=== PATIENT | male | born 1965 | race Caucasian/White ===

== ENCOUNTER 2018-07-02 16:45 | Inpatient (IN) | payer MEDICAID ==
--- NOTE | 2018-07-02 17:11 | EDPHY ---
HPI/HX/ROS/PE/MDM Narrative: CHIEF COMPLAINT: Chest tightness HISTORY OF PRESENT ILLNESS: The patient is a 52 y/o male with a history of diabetes, a STEMI, two cardiac stents, and borderline hypertension complaining of intermittent chest tightness associated with sweating and difficulty taking a deep breath. At the time of his STEMI his face was itchy and he felt like someone was pushing on his head. Due to his past STEMI he was advised to take nitroglycerin if he developed chest pain. For the past 6 months he was not taken his medications as he lost his insurance. He recently received Medicaid and went to see his PCP, Dr. Albert, yesterday. During this visit he was giving a flu shot and subsequently developed the mid-sternal chest tightness and a low grade fever. He also had labs preformed which revealed a blood glucose level of 540. Due to this hyperglycemia he was advised to present to the emergency department, which he did not do. The patient returned home and noticed that he became short of breath while walking up stairs. The pain kept him awake most of the night last night. Today he still had the chest pain and saw an travel clerk. During this visit his BGL was around 400. After seeing the travel clerk he returned home and tried eating some food even though he was nauseous. As his symptoms did not improve he decided to present to the emergency department. Currently his pain is a 6/10. He denies history of a PE or DVT. No fever, chills, palpitations, vomiting, diarrhea, urinary complaints, headache , lightheadedness. REVIEW OF SYSTEMS: Aside from elements discussed in the HPI, a comprehensive 10 system review of systems was reviewed and is negative. PAST MEDICAL HISTORY: Diabetes, STEMI, cardiac stents x 2 (drug alluding done at [place]), borderline hypertension, TBI, his father of a cardiac problems at 44 SOCIAL HISTORY: VITAL SIGNS: Reviewed by me GENERAL: Well-developed, well-nourished, resting comfortably in no respiratory distress. HEENT: Atraumatic. Eyes: No icterus, no injection. Mouth: moist mucous membranes. No erythema or lesions. Neck: supple with no adenopathy. LUNGS: Clear to auscultation bilaterally, no wheezes, rhonchi or rales. CARDIAC: Regular rate and rhythm, no rubs, murmurs or gallops. ABDOMEN: Soft, nontender, nondistended, bowel sounds normal. BACK: No CVA tenderness. EXTREMITIES: No trauma. No edema. Range of motion is normal throughout. NEURO: Alert and oriented, grossly nonfocal. SKIN: Warm and dry, no rash. PSYCHIATRIC: Normal mentation, no agitation. Portions of this note were transcribed by a medical aide. I personally performed a history, physical exam, medical decision making, and confirmed accuracy of information the transcribed note. ED Course: The patient is a 52 y/o male with a history of diabetes, a STEMI, two cardiac stents, and borderline hypertension presenting with intermittent anterior chest tightness associated with sweating and difficulty taking a deep breath. He has been noncompliant with medications for the past 6 months as he did not have insurance. His physical exam is normal. Labs, chest x-ray, and EKG ordered; 324mg PO Aspirin, Nitroglycerin, 10 units IV Humulin, and 500mL IV NS administered. 1600: Patient's BGL is 552 1655: 12-LEAD EKG: Please see the full report in [facility]. My interpretation: Sinus rhythm with a rate of 95, old anteroseptal infarct 174: I consulted with the hospitalist service, Dr. South accepts admission of this patient. 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 1814: Reassessed patient and discussed plan for admission, which he is comfortable with. Patient will be given his third nitroglycerin. - Data Points Imaging Results: Imaging Impressions Chest X-Ray 07/02/18 17:29 Impression: 1. Moderate to large hiatal hernia. 2. 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 Imaging: I viewed and interpreted images myself Laboratory Results: Laboratory Results 07/02/18 16:55 07/02/18 16:55 07/02/18 07/02/18 07/02/18 17:00 16:55 16:55 WBC RBC Hgb Hct MCV MCH MCHC RDW Plt Count MPV Neut % (Auto) Lymph % (Auto) Sherman % (Auto) Eos % (Auto) Baso % (Auto) Nucleat RBC Rel Count Absolute Neuts (auto) Absolute Lymphs (auto) Absolute Monos (auto) Absolute Eos (auto) Absolute Basos (auto) Absolute Nucleated RBC Immature Gran % Immature Gran # Sodium 133 mEq/L L mEq/L (135-145) Potassium 4.4 mEq/L mEq/L (3.3-5.0) Chloride 96 mEq/L L mEq/L (97-110) Carbon Dioxide 26 mEq/l mEq/l (22-31) Anion Gap 11 mEq/L mEq/L (8-16) BUN 16 mg/dL mg/dL (7-23) Creatinine 0.8 mg/dL mg/dL (0.7-1.3) Estimated GFR > 60 Glucose 552 mg/dL H* mg/dL (70-100) Calcium 9.3 mg/dL mg/dL (8.5-10.4) POC Troponin I 0.00 ng/mL ng/mL (0.00-0.08) Troponin I < 0.012 ng/mL ng/mL (0.000-0.034) 07/02/18 16:55 WBC 5.15 10^3/uL 10^3/uL (3.80-9.50) RBC 5.09 10^6/uL 10^6/uL (4.40-6.38) Hgb 15.7 g/dL g/dL (13.7-17.5) Hct 44.0 % % (40.0-51.0) MCV 86.4 fL fL (81.5-99.8) MCH 30.8 pg pg (27.9-34.1) MCHC 35.7 g/dL g/dL (32.4-36.7) RDW 11.8 % % (11.5-15.2) Plt Count 189 10^3/uL 10^3/uL (150-400) MPV 12.2 fL H fL (8.7-11.7) Neut % (Auto) 70.1 % % (39.3-74.2) Lymph % (Auto) 20.2 % % (15.0-45.0) Sherman % (Auto) 8.5 % % (4.5-13.0) Eos % (Auto) 0.6 % % (0.6-7.6) Baso % (Auto) 0.4 % % (0.3-1.7) Nucleat RBC Rel Count 0.0 % % (0.0-0.2) Absolute Neuts (auto) 3.61 10^3/uL 10^3/uL (1.70-6.50) Absolute Lymphs (auto) 1.04 10^3/uL 10^3/uL (1.00-3.00) Absolute Monos (auto) 0.44 10^3/uL 10^3/uL (0.30-0.80) Absolute Eos (auto) 0.03 10^3/uL 10^3/uL (0.03-0.40) Absolute Basos (auto) 0.02 10^3/uL 10^3/uL (0.02-0.10) Absolute Nucleated RBC 0.00 10^3/uL 10^3/uL (0-0.01) Immature Gran % 0.2 % % (0.0-1.1) Immature Gran # 0.01 10^3/uL 10^3/uL (0.00-0.10) Sodium Potassium Chloride Carbon Dioxide Anion Gap BUN Creatinine Estimated GFR Glucose Calcium POC Troponin I Troponin I Medications Given: Nitroglycerin (Nitrostat) 0.4 mg SL Q5M PRN PRN Reason: Chest Pain Last Admin: 07/02/18 17:31 Dose: 0.4 mg Discontinued Medications Aspirin (Aspirin) 324 mg PO EDNOW ONE Stop: 07/02/18 17:13 Last Admin: 07/02/18 17:17 Dose: 324 mg Sodium Chloride (Ns) 500 mls @ 1,000 mls/hr IV EDNOW ONE PRN Reason: Protocol Stop: 07/02/18 17:57 Last Admin: 07/02/18 17:40 Dose: 500 mls Insulin Human Regular (Humulin R) 10 unit IVP EDNOW ONE Stop: 07/02/18 17:29 Last Admin: 07/02/18 17:43 Dose: 10 units Point of Care Test Results: Chemistry 07/02/18 17:00 POC Troponin I 0.00 ng/mL ng/mL (0.00-0.08) General Time Seen by Provider: 07/02/18 16:58 Initial Vital Signs: Initial Vital Signs Temperature (C) 37.0 C 07/02/18 16:56 Heart Rate 93 07/02/18 16:56 Respiratory Rate 18 07/02/18 16:56 Blood Pressure 149/100 H 07/02/18 16:56 O2 Sat (%) 93 07/02/18 16:56 O2 Delivery Mode Room Air Allergies/Adverse Reactions: No Known Allergies Allergy (Verified 07/02/18 16:54) Home Medications: Medication Instructions Recorded Aspirin 81mg (*) 07/02/18 Departure - Departure Disposition: [facility] Inpatient Acute Clinical Impression: H/O medication noncompliance, Hiatal hernia Chest pain Qualifiers: Chest pain type: other chest pain Qualified Code(s): R07.89 - Other chest pain ; R07.8 - Other chest pain Condition: Fair Referrals: Juana Albert MD [Primary Care Provider] - As per Instructions Report Scribed for: Thais Quarles Report Scribed by: Pamela Sanchez Date of Report: 07/02/18 Time of Report: 18:06
[2018-07-02] MEDS ORDERED: ASPIRIN 81 MG CHEWABLE TAB PO ONE (17:12)
[2018-07-02] MEDS: NITROGLYCERIN 0.4 MG BTL SL PRN ×2 (17:18→17:31)
[2018-07-02 17:19] LABS: PLATELET COUNT 189 10^3/uL (150-400)
[2018-07-02] MEDS ORDERED: NS 500 ML IV ONE (17:28)
[2018-07-02] MEDS ORDERED: INSULIN REGULAR HUMAN 100 UNIT/ML UNIT IVP ONE (17:28)
[2018-07-02] MEDS ORDERED: D50W 25 GM/50 ML VIAL IVP PRN (20:02)
[2018-07-02] MEDS ORDERED: ACETAMINOPHEN 325 MG TAB PO PRN (20:07)
[2018-07-02] MEDS ORDERED: ONDANSETRON 4 MG/2 ML VIAL IVP PRN (20:07)
[2018-07-02] MEDS ORDERED: ONDANSETRON DISINTEGRATING 4 MG TAB PO PRN (20:07)
--- NOTE | 2018-07-02 20:10 | PDGENHP ---
History and Physical - Chief Complaint chest pain - History of Present Illness The patient is a 52 y/o male with a history of diabetes, a STEMI, two cardiac stents, and borderline hypertension complaining of intermittent chest tightness associated with sweating and difficulty taking a deep breath. This has been occurring for everal months. For the past 6 months he was not taken his medications as he lost his insurance. He recently received Medicaid and went to see his PCP, Dr. Albert, yesterday. During this visit he was giving a flu shot and subsequently developed the mid-sternal chest tightness and a low grade fever. He also had labs preformed which revealed a blood glucose level of 540. Due to this hyperglycemia he was advised to present to the emergency department , which he did not do. The patient returned home and noticed that he became short of breath while walking up stairs. The pain kept him awake most of the night last night. Today he still had the chest pain and saw an welcome hostess. During this visit his BGL was around 400. After seeing the welcome hostess he returned home and tried eating some food even though he was nauseous. As his symptoms did not improve he decided to present to the emergency department. He denies history of a PE or DVT. No fever, chills, palpitations, vomiting, diarrhea, urinary complaints, headache , lightheadedness. No chest pain at this time In the ER, the pt had an EKG which was unremarkable for acute ischemic changes. His trop is normal He was noted to have Hyperglycemia and started on insulin He was given nitro and Aspirin PAST MEDICAL HISTORY: Diabetes IDDM, STEMI, cardiac stents x 2 (drug alluding done at [place]), borderline hypertension, TBI, his father of a cardiac problems at 46 SOCIAL HISTORY: non smoker, unemployed FMHx: Father from [place] History Information - Allergies/Home Medication List Allergies/Adverse Reactions: No Known Allergies Allergy (Verified 07/02/18 16:54) Home Medications: Aspirin [Aspirin 81mg (*)] 81 mg PO HS 07/02/18 [Last Taken 07/01/18] Vit C/Ascorb Sod/Multivit-Min [Emergen-C 500 mg Chewable Tab] 500 mg PO DAILY [Last Taken 06/30/18] I have personally reviewed and updated: medical history, social history - Social History Smoking Status: Never smoked Review of Systems Review of Systems: ROS: 10pt was reviewed & negative except for what was stated in HPI & below Physical Exam Physical Exam: Temp Pulse Resp BP Pulse Ox 37 C 92 17 98/64 L 97 07/02/18 19:39 07/02/18 19:39 07/02/18 19:39 07/02/18 19:39 07/02/18 19:39 Constitutional: no apparent distress Eyes: PERRL Ears, Nose, Mouth, Throat: moist mucous membranes, hearing normal Cardiovascular: regular rate and rhythym, No edema Respiratory: no respiratory distress, no rales or rhonchi, clear to auscultation Gastrointestinal: normoactive bowel sounds, soft, non-tender abdomen Skin: warm Neurologic: AAOx3 Psychiatric: interacting appropriately, not anxious, not encephalopathic Lymph, Heme, Immunologic: No petechiae Lab Data & Imaging Review 07/02/18 16:55 07/02/18 16:55 WBC 5.15 10^3/uL (3.80-9.50) 07/02/18 16:55 RBC 5.09 10^6/uL (4.40-6.38) 07/02/18 16:55 Hgb 15.7 g/dL (13.7-17.5) 07/02/18 16:55 Hct 44.0 % (40.0-51.0) 07/02/18 16:55 MCV 86.4 fL (81.5-99.8) 07/02/18 16:55 MCH 30.8 pg (27.9-34.1) 07/02/18 16:55 MCHC 35.7 g/dL (32.4-36.7) 07/02/18 16:55 RDW 11.8 % (11.5-15.2) 07/02/18 16:55 Plt Count 189 10^3/uL (150-400) 07/02/18 16:55 MPV 12.2 fL (8.7-11.7) H 07/02/18 16:55 Neut % (Auto) 70.1 % (39.3-74.2) 07/02/18 16:55 Lymph % (Auto) 20.2 % (15.0-45.0) 07/02/18 16:55 [place] % (Auto) 8.5 % (4.5-13.0) 07/02/18 16:55 Eos % (Auto) 0.6 % (0.6-7.6) 07/02/18 16:55 Baso % (Auto) 0.4 % (0.3-1.7) 07/02/18 16:55 Nucleat RBC Rel Count 0.0 % (0.0-0.2) 07/02/18 16:55 Absolute Neuts (auto) 3.61 10^3/uL (1.70-6.50) 07/02/18 16:55 Absolute Lymphs (auto) 1.04 10^3/uL (1.00-3.00) 07/02/18 16:55 Absolute Monos (auto) 0.44 10^3/uL (0.30-0.80) 07/02/18 16:55 Absolute Eos (auto) 0.03 10^3/uL (0.03-0.40) 07/02/18 16:55 Absolute Basos (auto) 0.02 10^3/uL (0.02-0.10) 07/02/18 16:55 Absolute Nucleated RBC 0.00 10^3/uL (0-0.01) 07/02/18 16:55 Immature Gran % 0.2 % (0.0-1.1) 07/02/18 16:55 Immature Gran # 0.01 10^3/uL (0.00-0.10) 07/02/18 16:55 Sodium 133 mEq/L (135-145) L 07/02/18 16:55 Potassium 4.4 mEq/L (3.3-5.0) 07/02/18 16:55 Chloride 96 mEq/L (97-110) L 07/02/18 16:55 Carbon Dioxide 26 mEq/l (22-31) 07/02/18 16:55 Anion Gap 11 mEq/L (8-16) 07/02/18 16:55 BUN 16 mg/dL (7-23) 07/02/18 16:55 Creatinine 0.8 mg/dL (0.7-1.3) 07/02/18 16:55 Estimated GFR > 60 07/02/18 16:55 Glucose 552 mg/dL (70-100) H* 07/02/18 16:55 POC Glucose 238 mg/dL (70-100) H 07/02/18 19:34 Calcium 9.3 mg/dL (8.5-10.4) 07/02/18 16:55 POC Troponin I 0.00 ng/mL (0.00-0.08) 07/02/18 17:00 Troponin I < 0.012 ng/mL (0.000-0.034) 07/02/18 16:55 Assessment & Plan Assessment: #Chest pain in a pt with hx of CAD and multiple RF's #IDDM with hyperglycemia -unclear what medications he has been on previously. His welcome hostess started him on insulin today but he does no recall what regimen #HTN, not on medication #Hiatal Hernia #H/O medication noncompliance (Acute) Plan: the pt will be admitted observation TTE telemetry, serial trop stress test, treadmill tomorrow given risk factors HEART score is 5 He will start Lantus today given profound hyperglycemia on presentation to the ER. He will start on 10 units but likely needs more. An A1C will be checked to help determine an appropriate starting dose and he has also been encouraged to obtain the dose recommended by his welcome hostess today. ISS will also be started Check lipid radiation monitor BP closely given a hx of HTN. He does not have HTN today on my evaluation SCD's
[2018-07-02] MEDS ORDERED: INSULIN GLARGINE 100 UNITS/ML UNIT SC SCH (21:00)
[2018-07-02] MEDS: ASPIRIN 81 MG CHEWABLE TAB PO SCH (21:04)
--- NOTE | 2018-07-03 | CPEKG ---
Test Reason : OPEN Blood Pressure : / mmHG Vent. Rate : 095 BPM Atrial Rate : 096 BPM P-R Int : 130 ms QRS Dur : 082 ms QT Int : 372 ms P-R-T Axes : 041 006 035 degrees QTc Int : 468 ms Sinus rhythm Anteroseptal infarct, old Confirmed by Thais Quarles ([id number]) on 07/03/2018 12:00:21 AM Referred By: Confirmed By:Thais Quarles
[2018-07-03 06:23] LABS: PLATELET COUNT 155 10^3/uL (150-400)
[2018-07-03] MEDS ORDERED: MULTIVIT MIN PO SCH (09:00)
[2018-07-03] MEDS ORDERED: VIT C PO SCH (09:00)
[2018-07-03] MEDS ORDERED: ASCORB SOD PO SCH (09:00)
[2018-07-03] MEDS: INSULIN LISPRO 100 UNIT/ML SC SCH ×3 (09:30→18:48)
--- NOTE | 2018-07-03 10:32 | CPR ---
DATE OF PROCEDURE: 07/03/2018 PROCEDURE: Exercise treadmill test. INDICATION: The patient is a 52-year-old male with history of coronary artery disease requiring 2 st ents in 2014. He presented to the hospital complaining of chest pressure which occurred 1-2 days aft er receiving vaccinations. Upon further questioning, he admits to chest tightness, which has been pr esent for the last year and occurs when walking up a flight of stairs. He denies any shortness of br eath with exertion but has been fatigued recently. He also has a history of diabetes, which has been untreated, and his blood sugars have been as high as 500-600. PROCEDURE IN DETAIL: Consent was obtained, and the patient was placed on continuous telemetry. His resting EKG reveals normal sinus rhythm without any ST-T wave changes to suggest ischemia. The patie nt walked on the treadmill for 7 minutes. He complained of chest tightness beginning in the 2nd stag e. He rated it as 6/10. His chest discomfort persisted through 5 minutes of recovery. There were n o ST-T wave changes to suggest ischemia. He remained in normal sinus rhythm throughout the study. H is blood pressure at rest was 136/80, and it peaked at 180/80. His blood pressure returned to baseli ne 5 minutes into recovery. PLAN: The patient has a Pleitez treadmill score of +3, which places him at medium risk. If there is a high suspicion for coronary disease, consider more sophisticated study such as a nuclear stress test. /[id number]/MODL
--- NOTE | 2018-07-03 16:22 | ECHO ---
[email or web address] [address] [address] Main: [phone] Fax: Transthoracic Echocardiogram Name: KALEY IZQUIERDO MR#: [id number] Study Date: 07/03/2018 Study Time: 01:23 PM Date of : 1965 Age: 52 year(s) Height: 177.8 cm (70 in.) Weight: 78.47 kg (173 lb.) BSA: 1.96 m2 Gender: Male Examination: Echo Indication: Chest Pain, Hx of Stents x 2 Image Quality: Contrast: Requested by: Vijay South BP: 135 mmHg/86 mmHg Heart Rate: Rhythm: Normal sinus rhythm Indication: Chest Pain, Hx of Stents x 2 Procedure Staff Set Up Worker: Marquez Guerra RDCS Reading Physician: Mitch Mendoza MD Requesting Provider: Conclusions: Normal size left ventricle. Normal global systolic LV function. There is mild inferoseptal hypokinesis. There is LV dysschrony.. Measurements: Chambers Valvular Assessment AV/MV Valvular Assessment TV/PV Normal Normal Normal Name Value Range Name Value Range Name Value Range Ao Gregoria (MM): 3.5 cm (2.2 cm-3.7 AV Vmax: 1.11 m/s (1 m/s-1.7 PV Vmax: 0.71 m/s (0.6 m/s-0.9 cm) m/s) m/s) IVSd (2D): 0.8 cm (0.6 cm-1.1 AV maxP mmHg ( - ) PV PGmax: 2 mmHg ( - ) cm) LVOT Vmax: 0.78 m/s (0.7 m/s-1.1 LVDd (2D): 4.3 cm (4.2 cm-5.9 m/s) cm) MV E Vmax: 0.63 m/s ( - ) LVDs (2D): 3.0 cm (2.1 cm-4 MV A Vmax: 0.71 m/s ( - ) cm) MV E/A: 0.89 ( - ) LVPWd (2D): 1.0 cm (0.6 cm-1 cm) LVEF (MM): 64 (>=55 %) Continued Measurements: Chambers Valvular Assessment AV/MV Name Value Name Value LADs Lon.0 cm MV E' Septal: 0.05 m/s LA Area: 13.6 cm2 MV E/E' Septal: 13.20 LA Volume: 36 ml MV E/E' Lateral: 8.80 LA Volume Index: 18.4 ml/m2 Patient: KALEY IZQUIERDO Study Date: 07/03/2018 Page 1 of 2 01:23 PM Findings: Left Ventricle: Normal size left ventricle. Normal global systolic LV function. EF is 64 %. There is mild inferoseptal hypokinesis. There is LV dysschrony.. Right Ventricle: Normal size right ventricle. Normal RV function. Left Atrium: The left atrium is normal in size. Right Atrium: The right atrium is normal in size. Mitral Valve: The mitral valve is normal in appearance and function. Aortic Valve: The aortic valve is normal in appearance and function. The aortic valve is tri-leaflet. Tricuspid Valve: The tricuspid valve is normal in appearance and function. Pulmonic Valve: The pulmonic valve is normal in appearance and function. Aorta: The aorta is normal. Pericardium: No pericardial effusion. (No Signature Object) Patient: KALEY IZQUIERDO Study Date: 07/03/2018 Page 2 of 2 01:23 PM [id number]
[2018-07-03] MEDS ORDERED: INSULIN GLARGINE 100 UNITS/ML UNIT SC SCH (16:31)
--- NOTE | 2018-07-03 16:31 | HOSPPROG ---
Hospitalist Progress Note Assessment/Plan: Subjective Follow-up on chest pain. No recurrent chest pressure over night. He did undergo exercise stress testing today which I reviewed with Cardiology. No ECG changes were noted however patient did experience chest pressure with exertion. Objective Vital signs as detailed below Exam General-patient appears comfortable sitting in chair at the bedside awake alert conversant no acute distress Heart-regular no murmurs appreciated Lungs-Clear to auscultation with normal respiratory effort Abdomen-soft nontender nondistended -no Briceno catheter in place Extremities-no significant pitting edema or calf pain with palpation Labs as detailed below Assessment and plan Chest pain-no ECG changes noted on exercise treadmill but with history of coronary artery disease with percutaneous intervention in the past and the fact that he was symptomatic during this stress test will plan on nuclear medicine stress test imaging. Coronary artery disease-history of PCI in the past. Continue current medical management. Hypertension-controlled no changes today. Diabetes mellitus type 2-will increase his Lantus from 10 units to 20 units as glucose readings elevating into the 300s today. I believe he just consulted with pillar man recently and was prescribed insulin therapy. Hyperlipidemia-atorvastatin started. DVT prophylaxis-Lovenox. Disposition-pending nuclear medicine stress testing. Objective: Vital Signs Temp Pulse Resp BP Pulse Ox 36.6 C 98 18 125/82 H 93 07/03/18 15:39 07/03/18 15:39 07/03/18 15:39 07/03/18 15:39 07/03/18 15:39 Laboratory Results 07/03/18 06:19 07/03/18 06:19 07/02/18 07/03/18 07/04/18 05:59 05:59 05:59 Intake Total 750 Balance 750 ICD10 Worksheet Patient Problems: Problems Problem Status Onset Chest pain Acute H/O medication noncompliance Acute Hiatal hernia Acute
--- NOTE | 2018-07-03 16:58 | ASMTCMCOM ---
CM Note CM Note Notes: Pt in for chest pain, is having work up. No therapies ordered. Pt likely independent. CM to follow. Date Signed: 07/03/2018 04:57 PM Electronically Signed By:WENDI Blanca
[2018-07-03] MEDS ORDERED: ATORVASTATIN CALCIUM 10 MG TAB PO SCH (21:00)
[2018-07-03] MEDS: ASPIRIN 81 MG CHEWABLE TAB PO SCH (21:35)
[2018-07-04 07:37] VITALS: BP 121/84
[2018-07-04] MEDS: INSULIN LISPRO 100 UNIT/ML SC SCH (08:47)
[2018-07-04] MEDS ORDERED: ENOXAPARIN 40 MG/0.4 ML SYR SC SCH (09:00)
--- NOTE | 2018-07-04 09:56 | PDMN ---
Medical Necessity Medical necessity: MCG M89 Chest Pain: 48 y/o w/ CP, tachy >100, cardiology consult, treadmill test shows mod risk, nuc med stress test ordered and pending , BG 552 on arrival cont to be elevated 284 over night, hx CAD, STEMI, Cardiac stents x2, HTN, DM. Switch to IP status per MD order 07/03/18 @1722 as pt has multi comorbidities and needs another MN for ongoing dx testing, treatment and monitoring.
--- NOTE | 2018-07-04 14:42 | ASDISCHSUM ---
Discharge Information Plan Status:Home with No Needs Medically Cleared to Leave:07/04/2018 Discharge Date:07/04/2018 10:19 AM CM D/C Disposition:Home, Routine, Self-Care ADT D/C Disposition:Home, Routine, Self-Care Projected Discharge Date:07/04/2018 10:19 AM Transportation at D/C:Family Discharge Delay Reason: Follow-Up Date:07/04/2018 10:19 AM Discharge Slot:1 - 8:01 am - 12:00 noon Final Diagnosis:Chest pain, hx of TBI, CAD, HLD, HTN Placement Information Patient Contact Information Contact Name:BINH Relationship:Mother Address:[address] City:[place] Alternate Phone: State/Zip Code:[place] [address] Email: Financial Information Financial Class:Medicaid Primary Plan Desc:[employer] Primary Plan Number:[id number] Secondary Plan Desc: Secondary Plan Number: Assessment Information [facility] CM Progress Note CM Note CM Note Notes: Pt in for chest pain, is having work up. No therapies ordered. Pt likely independent. CM to follow. Date Signed: 07/03/2018 04:57 PM Electronically Signed By:WENDI Blanca LACE LACE Length of stay for Answers: 1 day current admission Acuity / Level of Answers: No Care: Did the patient have an inpatient admission? Comorbidities - select Answers: Coronary Artery Disease all that apply Diabetes (uncontrolled or controlled) Other Notes: TBI, HLD # of Emergency department Answers: 1-2 visits in the last 6 months Score: 6 Date Signed: 07/04/2018 02:41 PM Electronically Signed By:Mell Geller RN [facility] Progress Note CM Note CM Note Notes: Reviewed chart, spoke with CATHIE Paul regarding discharge plan of care, pt's progress. Pt admitted for chest tightness/pain. History includes chest pain, CAD, HTN, DM type 2, HLD. Per Beverly, pt to discharge home independently with no identified needs. No IM/DUTTA signed, not applicable. Pt to follow up as directed. CM available for any further issues or concerns. Discharge Plan: Home independently Date Signed: 07/04/2018 02:40 PM Electronically Signed By:Mell Geller RN Intervention Information
--- NOTE | 2018-07-04 21:30 | GDS ---
DISCHARGE DIAGNOSIS: Chest pain. HISTORY OF PRESENT ILLNESS: The patient is a pleasant 52-year-old gentleman with a past medical hist ory of coronary artery disease with a history of PCI, hypertension, as well as diabetes mellitus type 2, who presented to the [facility] Emergency Room after developing chest pain. His ECG on admission did not show any T-wave inversions or ST-segment deviations and his initial troponin was negative. He was admitted for serial troponins, all of which were negative. He subsequently un derwent an exercise stress test, which did not show any evidence of ECG abnormalities. He did, howev er, complain of chest discomfort during the study. Discussions took place toward doing a nuclear med icine stress test, which we tentatively plan to do tomorrow. I did give the patient the option of do ing this as an outpatient and since he did not have any recurrent chest pains and his troponins were normal, he ultimately decided on discharge with the plan of short-term cardiology followup to discuss the need for further assessment. He states that he had been out of health insurance for some time, but just recently acquired health insurance and so he is needing anyway to establish with a cardiolog ist in light of his cardiac history. An echocardiogram was also performed during the hospitalization , which showed an estimated ejection fraction of 64% with mild inferoseptal hypokinesis. HOSPITAL COURSE BY PROBLEM: 1. Chest pain. Negative ECG and troponins. Stress testing as well did not reveal any ECG abnormali ties and he had not had any escalating symptoms here in the hospital. I think it is reasonable to pr oceed with discharge at this point in time, with the plan for short-term cardiology consultation to [facility] and discuss the need for any additional testing. 2. Coronary artery disease. The patient has a history of a PCI in the past. He was continued on as pirin and statin therapy. 3. Hypertension, controlled during the hospitalization. No changes were made to his regimen. 4. Diabetes mellitus type 2. We did start him on insulin during the hospitalization. He states he had just consulted with an experienced truck driver on the Thursday before coming into the hospital and a prescr iption for insulin was sent to his pharmacy for him. He, however, presented to the emergency room be fore he had an opportunity to obtain any of his insulin. I opted not to make any recommendations oth er than recommending to him that he just continue on with what his experienced truck driver had prescribed. H is diabetes is uncontrolled with a hemoglobin A1c of 14%. He states the last time he used insulin wa s in August of 2017. 5. Hyperlipidemia. I recommend he continue with atorvastatin. 6. DVT prophylaxis-Lovenox used during this hospitalization. 7. Disposition: He appears stable for discharge home. EXAM: On day of discharge: VITAL SIGNS: Temperature 36.7, blood pressure 121/84, heart rate 95, re spirations 16, saturating 93% on room air. GENERAL: Patient appeared comfortable. He is awake, aleida rt, conversant, in no acute distress. HEART: Regular. No murmurs. RESPIRATORY: Lungs clear to au scultation with normal respiratory effort. ABDOMEN: Soft, nontender, nondistended. : No Bric[place] c atheter in place. EXTREMITIES: No significant pitting edema or calf pain with palpation. Notable studies as detailed above in the HPI. DISCHARGE MEDICATIONS: 1. Aspirin 81 mg daily. 2. Atorvastatin 40 mg nightly. 3. Insulin as prescribed by his experienced truck driver. DISCHARGE INSTRUCTIONS: I have recommended a followup visit with his primary provider, Dr. Albert, as well as Cardiology in the coming 1-2 weeks. Notation: Thirty-five minutes of time dedicated to discharge efforts. /[id number]/MODL
== END 2018-07-04 10:19 | disposition home or self-care (01) | DRG 198 ==
LOC: F2W 20:15 → OBSVTOIN 07-03 17:22
PROVIDERS: ADMIT Family Medicine; ATTEND Family Medicine
DX: R07.9 Chest pain, unspecified (principal); E11.65 Type 2 diabetes mellitus with hyperglycemia; I25.10 Atherosclerotic heart disease of native coronary artery without angina pectoris; E86.9 Volume depletion, unspecified; I10 Essential (primary) hypertension; K44.9 Diaphragmatic hernia without obstruction or gangrene; E78.5 Hyperlipidemia, unspecified; Z79.82 Long term (current) use of aspirin; Z95.5 Presence of coronary angioplasty implant and graft
CPT/HCPCS: 84484-PO; 96374; G0378; J1650; J1815; J2270

== ENCOUNTER 2018-07-16 14:24 | Observation (INO) | payer MEDICAID ==
[2018-07-16] MEDS ORDERED: diphenhydrAMINE 25 MG CAP PO ONE (14:25)
[2018-07-16] MEDS ORDERED: FAMOTIDINE 20 MG TAB PO ONE (14:25)
[2018-07-16] MEDS ORDERED: DIAZEPAM 5 MG TAB PO ONE (14:25)
[2018-07-16] MEDS ORDERED: NS 1,000 ML IV ONE (14:25)
[2018-07-16] MEDS ORDERED: ASPIRIN EC 325 MG TAB PO ONE (14:25)
[2018-07-16] MEDS ORDERED: fentaNYL 100 MCG/2 ML INJ ONE (14:53)
[2018-07-16] MEDS ORDERED: LIDOCAINE 1% 300 MG/30 ML SDV ONE (14:53)
[2018-07-16] MEDS ORDERED: MIDAZOLAM 2 MG/2 ML VIAL ONE (14:54)
[2018-07-16] MEDS ORDERED: IOPAMIDOL (ISOVUE-370) 150 ML BTL IV ONE ×2 (14:54→16:54)
[2018-07-16 15:04] LABS: PLATELET COUNT 205 10^3/uL (150-400)
[2018-07-16 15:13] LABS: PROTIME(PATIENT) 13.4 SEC (12.0-15.0)
--- NOTE | 2018-07-16 16:13 | PDPROPOC ---
Sedation Plan of Care Sedation Plan of Care: vital signs stable, mental status noted, patient educated of risks, benefits, alternatives, patient can tolerate sedation ASA Classification: ASA 3 Planned drugs: fentanyl, midazolam Mallampati Score: Class 2 Mallampati Reference Image: Patient passed 3-3-2 rule?: Yes
--- NOTE | 2018-07-16 16:13 | PDHPUP ---
History & Physical Update H&P update statement: This history and physical update is based on an assessment of the patient which was completed after admission or registration (within 24 hours), but prior to the surgery/procedure. H&P update: H&P reviewed & patient examined, no change in patient's condition since H&P completed
[2018-07-16] MEDS ORDERED: BIVALIRUDIN 250 MG/5 ML VIAL IV ONE (16:27)
[2018-07-16] MEDS ORDERED: EPINEPHrine 1 MG/10 ML SYR IVP ONE (16:27)
[2018-07-16] MEDS ORDERED: NITROGLYCERIN 1,500 MCG/15 ML VIAL MISC ONE (16:27)
[2018-07-16] MEDS ORDERED: ATROPINE SULFATE 1 MG/10 ML SYR ONE (16:27)
--- NOTE | 2018-07-16 16:39 | PDDXCAT ---
Diagnostic Cath Note - . Date: 07/16/18 Jackerman: Jc Indication: CCC Class III and IV angina on medical treatment, other (High risk stress test) - Procedure Access: right groin Procedure: left heart catheterization, coronary angiography, left ventriculogram - Materials Left Heart Cath size: 6F Left Heart Cath materials: JL4.0, JR4.0, pigtail - Findings-Left Heart Catheterization LM: is 6mm in size and short. It bifurcates to the LAD and circumflex system LAD: is 3.5mm in size and is previously stented in the mid segment. There is 30 percent in stent restenosis. The proximal LAD shows evidence of dye streaming. There is abnormal flow characteristics of HARJIT II to HARJIT III to the distal LAD. The contrast gets to the apex later than in the circumflex system. LCX: is 3.5mm in size and gives rise to a high obtuse marginal branch then terminates as a posterior PDA and makes this vessel codominant. There is HARJIT III flow and no obstruction. RCA: 3mm in size and a co dominant vessel. The vessel is previously stented in the mid segment. The stented segment is widely patent. There is a 95% lesion in the proximal PDA. There is HARJIT I flow distal to the obstruction. EDP: 15mmHg. LVEF: 50% Wall motion: There is mild basilar inferior hypokinesis consistent with prior injury. Complications: NONE Estimated blood loss: <50ml Closure method: Angioseal Assessment: The patient has [place] vessel coronary disease with evidence of flow limiting obstruction of the RCA. There are also abnormal fllow characteristics within the LAD without obvious angiographic obstruction. There are wall motion abnormalities conssitent with prior myocardial injury. Plan: I would like to have the patient on Aspirin 325 mg along with Plavix 75mg daily should be given for the first month following stent implantation. the ASA dose can then be decreased to 81 mg and continued with Plavix 75 mg to be continued for at least a year following drug eluting stent implantation. No elective surgery for the first 3 months. Decisions to stop dual antiplatelet therapy before 1 year should involve our office [facility] ([phone]). Intervention: A 6 Citizen [place] JL4 guiding catheter was used for guide catheter support. The 95% lesion at the proximal PDA of the RCA was stented with a 2.5x16mm Synergy drug eluting stent. There was 0% residual stenosis post stent implantation with improvement in flow from HARJIT II to HARJIT III flow post stent implant. Patient Problems: Problems Problem Status Onset Chest pain Acute H/O medication noncompliance Acute Hiatal hernia Acute
--- NOTE | 2018-07-16 16:59 | CPEKG ---
Test Reason : OPEN Blood Pressure : / mmHG Vent. Rate : 091 BPM Atrial Rate : 090 BPM P-R Int : 126 ms QRS Dur : 090 ms QT Int : 429 ms P-R-T Axes : 039 012 063 degrees QTc Int : 528 ms Sinus rhythm Prolonged QT interval Confirmed by Mitch Mendoza ([id number]) on 07/16/2018 4:59:06 PM Referred By: Confirmed By:Mitch Mendoza
[2018-07-16] MEDS ORDERED: CLOPIDOGREL BISULFATE 75 MG TAB ONE ×2 (17:10→17:11)
[2018-07-16] MEDS ORDERED: ATROPINE SULFATE 1 MG/10 ML SYR IVP PRN (17:41)
[2018-07-16] MEDS ORDERED: OXYCODONE/APAP 5/325 TAB PO PRN (17:41)
[2018-07-16] MEDS ORDERED: LORazepam 2 MG/ML INJ IVP PRN (17:41)
[2018-07-16] MEDS ORDERED: CLOPIDOGREL BISULFATE 75 MG TAB PO ONE (17:41)
[2018-07-16] MEDS ORDERED: NITROGLYCERIN 0.4 MG BTL SL PRN (17:41)
[2018-07-16] MEDS ORDERED: TEMAZEPAM 15 MG CAP PO PRN (17:41)
[2018-07-16] MEDS ORDERED: HYDROCODONE/APAP 5/325 TAB PO PRN (17:41)
[2018-07-16] MEDS ORDERED: ONDANSETRON 4 MG/2 ML VIAL IVP PRN (17:41)
[2018-07-16] MEDS ORDERED: ATORVASTATIN CALCIUM 40 MG TAB PO SCH (21:00)
[2018-07-16] MEDS: LISINOPRIL 2.5 MG TAB PO SCH (21:18)
[2018-07-16] MEDS: INSULIN GLARGINE 100 UNITS/ML UNIT SC SCH (21:18)
[2018-07-16] MEDS: INSULIN LISPRO 100 UNIT/ML SC SCH (21:36)
[2018-07-17 04:30] LABS: PLATELET COUNT 185 10^3/uL (150-400)
[2018-07-17] MEDS ORDERED: INSULIN LISPRO 100 UNIT/ML SC ONE ×2 (08:00→12:00)
[2018-07-17] MEDS: LISINOPRIL 2.5 MG TAB PO SCH (08:51)
[2018-07-17] MEDS: INSULIN LISPRO 100 UNIT/ML SC SCH ×2 (08:52→12:39)
[2018-07-17] MEDS: INSULIN GLARGINE 100 UNITS/ML UNIT SC SCH (08:52)
[2018-07-17] MEDS ORDERED: ASPIRIN EC 325 MG TAB PO SCH (09:00)
[2018-07-17] MEDS ORDERED: CLOPIDOGREL BISULFATE 75 MG TAB PO SCH (09:00)
[2018-07-17] MEDS ORDERED: ROSUVASTATIN CALCIUM 40 MG TAB PO SCH (11:00)
--- NOTE | 2018-07-17 11:13 | PDCARPN ---
Cardiology Progress Note Chief Complaint: chest pain Assessment/Plan: Assessment: 1. Coronary disease 2. PCI to the PDA with a 2.5 x 16 mm synergy drug-eluting stent 07/16/2018 3. Hyperlipidemia 4. Diabetes Plan: -discontinue atorvastatin Start rosuvastatin 40 mg daily -Plavix 75 mg once daily -aspirin 325 mg daily for 1 month and then return to aspirin 81 mg daily Arrange for cardiac rehab as an outpatient Followup in the office in 1 week for groin check Follow-up with me in 1 month. 07/17/18 11:13 Subjective: Mr. Reyes is a pleasant 52 year old gentleman with a known history of coronary disease with PCI to the LAD and RCA in 2014 at [facility]. He presented to the office yesterday with ongoing complaints of substernal chest pressure and shortness of breath. He was brought from the office to the cardiac catheterization lab. Left heart catheterization demonstrated patent stent to the proximal RC A. There is a 90% stenosis of the PDA branch off the RCA. He underwent successful 2.5 x 16 mm synergy drug-eluting stent to the PD A. No postoperative complications. Coronary angiography demonstrated approximately 30% stenosis within the LAD stent. There was evidence of dye streaming in the proximal LAD with HARJIT 3 flow. Objective: Vital Signs (8 Hrs) Temp Pulse Resp BP Pulse Ox 07/17/18 07:23 36.7 C 87 16 109/67 93 07/17/18 04:47 36.6 C 83 16 114/74 92 Intake/Output (24 Hrs) 07/16/18 07/17/18 07/18/18 05:59 05:59 05:59 Intake Total 1300 Balance 1300 Intake: Oral (ml) 700 IV Intake (ml) 600 Other: Weight 81.647 kg Number of Voids Toilet 2 Result Diagrams: 07/17/18 04:00 07/17/18 04:00 ICD10 Worksheet Patient Problems: Problems Problem Status Onset Chest pain Acute H/O medication noncompliance Acute Hiatal hernia Acute
[2018-07-17 12:04] VITALS: BP 107/74
--- NOTE | 2018-07-17 12:32 | GDS ---
INDICATION FOR ADMISSION: Chest pain, shortness of breath and known history of coronary artery disea se and multiple coronary artery disease risk factors including hyperlipidemia, diabetes, and family h istory of premature coronary artery disease. HOSPITAL COURSE: The patient is a pleasant 52-year-old gentleman with a known history of coronary ar byron disease with myocardial infarction with PCI to the LAD and RCA in [address] [facility]. [facility] with complaints of chest pain. Hi s workup at that time included an abnormal treadmill stress test with 6/10 exertional chest pain with exercise that resolved at 5 minutes into rest. He did not undergo any other further testing during hospitalization and he was discharged home to follow up with me in the office. I saw the patient for the first time in my clinic yesterday afternoon at which time he is complaining of ongoing substernal chest pressure and shortness of breath while in the office. He states he had also noticed significant increased fatigue over the previous 48 hours. I brought him urgently to the cardiac catheterization lab where my colleague Dr. Greene [facility] significant stenosis of 90% to the PDA branch off the RCA. He underwent successf ul PCI with a 2.5 x 16 mm synergy drug-eluting stent. The left coronary system demonstrated no signi ficant coronary disease within the circumflex vessel. There is 30% in-stent stenosis to the proximal LAD stent. There was some dye streaming and low flow through the proximal LAD, but ultimately had T IMI-3 flow and culprit lesion was thought to be his PDA branch of his RCA. This morning, he is feeling well. He has no cardiac complaints. He states the symptoms that he was experiencing yesterday in my office have completely resolved. Telemetry demonstrates normal sinus rh ythm with no significant arrhythmias. His blood pressure remains well controlled. His right groin site is stable without evidence of hematoma or ecchymosis. Distal pulses are intact. warm to palpation with normal coloring. EXAM AT TIME OF DISCHARGE: VITAL SIGNS: Blood pressure 109/67, heart rate 87 in sinus rhythm, respi ratory rate of 16, oxygen saturation 93% on room air, temperature 36.7. GENERAL: He is awake, alert, oriented, appropriate, in no apparent distress. There is no evidence o f JVP or carotid bruits. RESPIRATORY: His lungs are clear to auscultation bilaterally. CARDIAC EXA M: Is S1 and S2, regular rate and rhythm. No murmurs, rubs, or gallops. His PMI is not displaced. ABDOMEN: Soft, nontender, nondistended. Right groin site is stable without evidence of hematoma or ecchymosis, mildly tender to palpation. His distal pulses are intact with no evidence of cyanosis, clubbing or edema. LABORATORY DATA: At time of discharge, white blood cell count 6.04, hemoglobin of 14.1, hematocrit 4 0.4, platelet count 185. Sodium of 137, potassium 3.8, chloride 105, bicarb 26, BUN 14, creatinine 0 .7, magnesium of 1.9. Lipid profile performed yesterday demonstrates total cholesterol 157, triglyce rides of 82, LDL of 92, HDL of 49 on atorvastatin 40 mg daily. PLAN: At time of discharge. 1. The patient will be discontinued on atorvastatin. 2. Start rosuvastatin 40 mg daily. 3. Increase aspirin to 325 mg daily. 4. Start Plavix 75 mg daily without interruption for the next 12 months. 5. Continue lisinopril 2.5 mg p.o. b.i.d. 6. Continue his outpatient insulin schedule. 7. We will arrange for patient to be seen in the office next week. I would recommend starting cardi ac rehab. 8. Would plan for outpatient exercise treadmill stress test in approximately 4 weeks. 9. Post left heart catheterization instructions have been provided in detail. /[id number]/MODL
--- NOTE | 2018-07-17 13:53 | ASDISCHSUM ---
Discharge Information Plan Status:Home with No Needs Medically Cleared to Leave:07/17/2018 Discharge Date:07/17/2018 01:15 PM CM D/C Disposition:Home, Routine, Self-Care ADT D/C Disposition:Home, Routine, Self-Care Projected Discharge Date:07/17/2018 01:15 PM Transportation at D/C:Family Discharge Delay Reason: Follow-Up Date:07/17/2018 01:15 PM Discharge Slot: Final Diagnosis: Placement Information Patient Contact Information Contact Name:BINH Relationship:Mother Address:[address] [place] [address] [place] City:[place] Alternate Phone: [facility]/Zip Code:[place] [address] Email: Financial Information Financial Class:Medicaid Primary Plan Desc:MEDICAID HEALTH SECURITY INSTALLER Primary Plan Number:[id number] Secondary Plan Desc: Secondary Plan Number: Assessment Information LACE LACE Length of stay for Answers: Less than 1 day current admission Acuity / Level of Answers: No Care: Did the patient have an inpatient admission? Comorbidities - select Answers: Coronary Artery Disease all that apply Diabetes (uncontrolled or controlled) Previous myocardial infarction Other Notes: HTN, TBI # of Emergency department Answers: 1-2 visits in the last 6 months Score: 6 Date Signed: 07/17/2018 01:50 PM Electronically Signed By:Chelle Adams RN Case Management Discharge Plan Note Case Management Discharge Discharge Order Complete? Answers: Yes Patient to Obtain Answers: Independently Medications Transportation Arranged Answers: Family/Friends Discharge Comments Notes: Pt to discharge independent with follow up as directed. Date Signed: 07/17/2018 01:52 PM Electronically Signed By:Chelle Adams RN Intervention Information
--- NOTE | 2018-07-20 17:06 | CPEKG ---
Test Reason : OPEN Blood Pressure : / mmHG Vent. Rate : 083 BPM Atrial Rate : 082 BPM P-R Int : 137 ms QRS Dur : 090 ms QT Int : 399 ms P-R-T Axes : 012 -13 050 degrees QTc Int : 469 ms Sinus rhythm Confirmed by Mitch Mendoza ([id number]) on 07/20/2018 5:06:10 PM Referred By: Confirmed By:Mitch Mendoza
== END 2018-07-17 13:15 | disposition home or self-care (01) ==
LOC: FCATH 14:24 → F2W 17:50
PROVIDERS: ADMIT Internal Medicine Cardiovascular Disease; ATTEND Internal Medicine Cardiovascular Disease
PROC: B2111ZZ Fluoroscopy of Multiple Coronary Arteries using Low Osmolar Contrast (ICD-10-PCS; principal; 2018-07-16)
PROC: 4A023N7 Measurement of Cardiac Sampling and Pressure, Left Heart, Percutaneous Approach (ICD-10-PCS; principal; 2018-07-16)
PROC: B2151ZZ Fluoroscopy of Left Heart using Low Osmolar Contrast (ICD-10-PCS; principal; 2018-07-16)
PROC: 027034Z Dilation of Coronary Artery, One Artery with Drug-eluting Intraluminal Device, Percutaneous Approach (ICD-10-PCS; principal; 2018-07-16)
DX: I25.119 Atherosclerotic heart disease of native coronary artery with unspecified angina pectoris (principal); E11.9 Type 2 diabetes mellitus without complications; I10 Essential (primary) hypertension; Z95.5 Presence of coronary angioplasty implant and graft; E78.5 Hyperlipidemia, unspecified; I25.2 Old myocardial infarction
CPT/HCPCS: 92928; 93005; 93458; C1769; C1887; G0378; C1760; C1874; C9600; J0461; J0583; J1644; J1815; J2250; J3010; Q9967

== ENCOUNTER 2018-08-04 17:22 | Emergency (ER) | payer MEDICAID ==
[2018-08-04] MEDS ORDERED: NS 1,000 ML IV ONE (17:42)
--- NOTE | 2018-08-04 17:47 | EDPHY ---
H & P Smoking Status: Never smoked Time Seen by Provider: 08/04/18 17:31 HPI/ROS: CHIEF COMPLAINT: Bilateral leg pain and weakness HISTORY OF PRESENT ILLNESS: Patient of note has had previous back surgeries after a construction accident in 1995. He also has diabetes. He also started a new statin medication for his cholesterol in the past week. He presents today with 1 week of worsening pelvic pain and bilateral thigh pain with worsening bilateral leg weakness. States it is a little bit worse with going up stairs, but not with walking in general. It does not go way immediately at rest. It is not associated with new pain or new numbness in the feet. He does have chronic left leg weakness and numbness after one of his spine surgeries and that is unchanged. Denies change in his urine. Denies arm pain or upper back pain. No fever or chills. Symptoms moderate, not better with anything. REVIEW OF SYSTEMS: Eye: no change in vision ENT: no sore throat Cardiac: no chest pain or syncope Pulmonary: no cough or SOB Abdomen: no vomiting, diarrhea, abdominal pain Musculoskeletal: Pain in his pelvis and very low back. Skin: no rash Neuro: no headache Constitutional: no fever : no urinary symptoms A comprehensive 10 point review of systems is otherwise negative aside from elements mentioned in the history of present illness. PAST MEDICAL HISTORY: Diabetes, previous spine surgeries including L4-5 laminectomy and diskectomy. Hypercholesterolemia. Coronary disease with previous stenting. Social history: Nonsmoker, here with his kids General Appearance: Alert and conversant, cooperative. Eyes: No scleral icterus. ENT, Mouth: Normal mucous membranes. Respiratory: Normal respiratory effort, breath sounds equal, lungs are clear to auscultation. Cardiovascular: Regular rate and rhythm. Normal dorsalis pedis pulses both legs, no pulsatile abdominal mass, normal femoral pulses. Gastrointestinal: Abdomen is soft and non tender. No pulsatile mass. Neurological: Alert, face symmetric, has decreased strength and sensation and plantar flexion and dorsiflexion of the left foot which is not new. 1+ bilateral patellar reflexes and no clonus. He is ambulatory. Skin: Warm and dry, no rashes. Musculoskeletal: No peripheral edema. Compartments are soft in both thighs. Psychiatric: Not agitated. Emergency Department course/MDM: Plan for CBC chemistry and CPK. Also would consider need for MRI given previous spine surgery with leg pain and weakness. I think acute arterial embolic disease, aortic dissection, venous thrombosis, infection all unlikely. 1814: CPK normal, glucose 149, MRI discussed and consented. Signed out to thanh with MRI pending. (Ronaldo Maldonado) Constitutional: Initial Vital Signs Temperature (C) 36.6 C 08/04/18 17:23 Heart Rate 93 08/04/18 17:23 Respiratory Rate 16 08/04/18 17:23 Blood Pressure 98/76 L 08/04/18 17:23 O2 Sat (%) 96 08/04/18 17:23 O2 Delivery Mode Room Air Allergies/Adverse Reactions: No Known Allergies Allergy (Verified 07/02/18 16:54) Home Medications: Medication Instructions Recorded Insulin Aspart [Novolog Flexpen] 15 unit SQ TIDMEAL 07/16/18 Insulin Detemir [Levemir Flextouch] 15 unit SQ BID 07/16/18 Lisinopril [Zestril 2.5 mg (*)] 2.5 mg PO BID 07/16/18 Aspirin EC [Aspirin EC 325 mg (*)] 325 mg PO DAILY tab 07/17/18 Clopidogrel Bisulfate [Plavix (*)] 75 mg PO DAILY #90 tab 07/17/18 Nitroglycerin [Nitrostat 0.4 mg 0.4 mg SL Q5M PRN #1 btl 07/17/18 (*)] Rosuvastatin Calcium [Crestor 40mg 40 mg PO DAILY #90 tab 07/17/18 (*)] Medical Decision Making ED Course/Re-evaluation: I assumed care of this patient from Dr. Maldonado. MRI in progress at that time. MRI reported to me via telephone by Dr. Holman at approximately 2140. MRI of T spine shows degenerative changes with stenosis, MRI of L spine shows both degenerative and post-surgical changes. I relayed these findings to the patient. He has been ambulatory to the bathroom, states that he is not having difficulty walking and that he is not aware of new leg weakness (he has longstanding left leg weakness). He continues with upper thigh bilateral leg pain/aching. He is discontinuing his statin. He will follow up with neurosurgery. Neurosurgery referral provided. He is comfortable with this plan. (Araceli Laguerre) Other Provider: I assumed care of this patient from Dr. Ronaldo Maldonado at 8:15 p.m.. Patient is in MRI. (Araceli Laguerre) - Data Points Laboratory Results: Laboratory Results 08/04/18 17:45 08/04/18 17:45 Medications Given: Discontinued Medications Hydrocodone Bitart/Acetaminophen ([place] 5/325mg Prepack#6) 1 btl TAKEHOME EDNOW ONE Stop: 08/04/18 22:20 Last Admin: 08/04/18 22:26 Dose: 1 btl Diphenhydramine HCl (Benadryl) 50 mg PO EDNOW ONE Stop: 08/04/18 22:22 Last Admin: 08/04/18 22:26 Dose: 50 mg Sodium Chloride (Ns) 1,000 mls @ 0 mls/hr IV EDNOW ONE; Wide Open PRN Reason: Protocol Stop: 08/04/18 17:43 Last Admin: 08/04/18 17:56 Dose: 1,000 mls Point of Care Test Results: Chemistry 08/04/18 20:47 POC Glucose 84 mg/dL mg/dL (70-100) Departure - Departure Disposition: Home, Routine, Self-Care Clinical Impression: Back pain Condition: Good Instructions: Hydrocodone/Acetaminophen (By mouth), Back Pain (ED) Additional Instructions: Call the Neurosurgery office tomorrow to schedule an appointment. Let the office staff know that you have had an MRI scan done in the emergency department. Stop taking the cholesterol medication. Do not take more than 3000 mg of Tylenol in a 24 hr time period. I am providing you with a small amount of [place] which is a combination of hydrocodone and Tylenol. You cannot take this medication until tomorrow afternoon since you have already taken today's allotment of Tylenol. Referrals: Juana Albert MD [Primary Care Provider] - As per Instructions Marty Oneal MD [Medical Doctor] - As per Instructions
[2018-08-04 17:50] LABS: PLATELET COUNT 195 10^3/uL (150-400)
[2018-08-04 18:09] LABS: CREATINE KINASE 92 IU/L (0-224)
[2018-08-04] MEDS ORDERED: HYDROCOD/APAP 5/325 PREPACK#6 BTL TAKEHOME ONE (22:19)
[2018-08-04] MEDS ORDERED: diphenhydrAMINE 25 MG CAP PO ONE (22:21)
[2018-08-04 22:32] VITALS: BP 119/65
== END 2018-08-04 22:31 | disposition home or self-care (01) ==
DX: M79.661 Pain in right lower leg (principal); M79.662 Pain in left lower leg; M48.04 Spinal stenosis, thoracic region; E11.9 Type 2 diabetes mellitus without complications; E78.00 Pure hypercholesterolemia, unspecified; I25.10 Atherosclerotic heart disease of native coronary artery without angina pectoris; Z95.9 Presence of cardiac and vascular implant and graft, unspecified; Z98.890 Other specified postprocedural states; Z79.4 Long term (current) use of insulin

== ENCOUNTER 2018-09-12 22:03 | Observation (INO) | payer MEDICAID ==
[2018-09-12] MEDS ORDERED: NS 1,000 ML IV ONE ×2 (22:12→22:24)
--- NOTE | 2018-09-12 22:12 | EDPHY ---
H & P Stated Complaint: c/o syncope, checked bp 92/59, then became dizzy Time Seen by Provider: 09/12/18 22:12 HPI/ROS: HPI CHIEF COMPLAINT: Lightheadedness, syncope, dizziness, fatigue, chest pressure HISTORY OF PRESENT ILLNESS: 53-year-old male, history of insulin-dependent diabetes, as well as coronary artery disease with 3 stents, presents emergency room after he got off the couch tonight to go just this term status house became lightheaded. [place] like he was going to pass out. He describes it is somebody pushing his head to the ground. He denies any dizziness room spinning. He also endorses some chest pressure. He states chest pressure started yesterday. He had a syncopal episode without any trauma. Denies headache or neck pain. He does complain of chronic leg pain and pelvic pain which she takes gabapentin. He was recently started on this approximately 4 weeks ago. He states the gabapentin makes him very sleepy also gives him a dry throat. Decided come here due to taking his blood pressure is blood pressure is 90s over 60s at home. This problem to come the emergency room. States he drove here. Past Medical History: Significant medical history for coronary artery disease with stents, insulin-dependent diabetes. Chronic leg pain takes gabapentin. Past Surgical History: Cardiac stents. X3. Cardiac stents in LAD, RCA. Social History: Denies drugs alcohol tobacco. Lives locally. Family History: Extensive family history of coronary artery disease and multiple immediate family members including father, multiple angles. ROS REVIEW OF SYSTEMS: 10 Systems were reviewed and negative with the exception of the elements mentioned in the history of present illness. Exam Constitutional nontoxic no acute distress, triage nursing summary reviewed, vital signs reviewed, awake/alert. Vital signs noted at triage tachycardic. Eyes normal conjunctivae and sclera, EOMI, PERRLA. HENT normal inspection, atraumatic, moist mucus membranes, no epistaxis, neck supple/ no meningismus, no raccoon eyes. Respiratory clear to auscultation bilaterally, normal breath sounds, no respiratory distress, no wheezing. Cardiovascular tachycardia, regular rhythm, no murmur, no edema, distal pulses normal. Gastrointestinal soft, non-tender, no rebound, no guarding, normal bowel sounds, no distension, no pulsatile mass. Genitourinary no CVA tenderness. Musculoskeletal no midline vertebral tenderness, full range of motion, no calf swelling, no tenderness of extremities, no meningismus, good pulses, neurovascularly intact. Skin pink, warm, & dry, no rash, skin atraumatic. Neurologic awake, alert and oriented x 3, AAOx3, moves all 4 extremities equally, motor intact, sensory intact, CN II-XII intact, normal cerebellar, normal vision, normal speech. Psychiatric normal mood/affect. Heme/Lymph/Immune no lymphadenopathy. Differential Diagnosis: Includes but is not limited to in a particular order: Dehydration, electrolyte disturbance, cardiac arrhythmia, vasovagal syncope, orthostatic syncope, ischemia, dehydration, medication adverse effect. Medical Decision Making: Plan for this patient IV establishment IV fluid bolus , full vital signs, EKG, troponin, D-dimer, chest x-ray, orthostatics, re- evaluate. Re-evaluation: EKG interpretation by me on record in [employer] [facility] system. Impression time of EKG 2222, sinus tach 115, no signs of ST elevation. No signs of ST depression. No prolonged intervals. No signs of cardiac arrhythmia. When compared to his old EKG dated 07/16/2018 and 07/02/2018 very similar morphology. Point care troponin 0.00. 2238 EKG interpretation by me on record in [employer] [facility] system. Impression time of EKG 2307: Sinus tach 103. No signs of acute ischemia. Q-waves noted V1 V2. ED x-ray chest one view: Negative for acute cardiopulmonary disease. 2333: Long discussion with the patient about being admitted overnight for observation given syncope, chest pressure. This time he has no chest pressure. Troponins negative. D-dimer is negative. 2 EKGs show no acute ischemia. Patient has agreed for admission overnight for observation. I have consult the hospitalist service Dr. Felder agrees to admit. Most likely this patient is dehydrated in the setting of hyperglycemia and is orthostatic vital signs have been reviewed and are positive. Source: Patient - Personal History Tetanus Vaccine Date: < 10 YEARS - Medical/Surgical History Hx Asthma: No Hx Chronic Respiratory Disease: No Hx Diabetes: Yes Hx Cardiac Disease: Yes Hx Renal Disease: No Hx Cirrhosis: No Hx Alcoholism: No Hx HIV/AIDS: No Hx Splenectomy or Spleen Trauma: No Other PMH: Stents .18, Type II diabetes '08, L4-L5 laminectomy & diskectomy, hyperlipidemia - Social History Smoking Status: Never smoked Constitutional: Initial Vital Signs Temperature (C) 36.4 C 09/12/18 22:07 Heart Rate 124 H 09/12/18 22:07 Respiratory Rate 16 09/12/18 22:07 Blood Pressure 112/79 09/12/18 22:07 O2 Sat (%) 98 09/12/18 22:07 O2 Delivery Mode Room Air Allergies/Adverse Reactions: No Known Allergies Allergy (Verified 09/12/18 22:10) Home Medications: Medication Instructions Recorded Insulin Aspart [Novolog Flexpen] 25 unit SQ TIDMEAL 07/16/18 Insulin Detemir [Levemir Flextouch] 30 unit SQ BID 07/16/18 Aspirin EC [Aspirin EC 325 mg (*)] 325 mg PO DAILY tab 07/17/18 Clopidogrel Bisulfate [Plavix (*)] 75 mg PO DAILY #90 tab 07/17/18 Nitroglycerin [Nitrostat 0.4 mg 0.4 mg SL Q5M PRN #1 btl 07/17/18 (*)] Carboxymethylcellulose 1% [Refresh 1 drop EACHEYE DAILY PRN 09/13/18 Celluvisc (*)] metFORMIN SR [Glucophage XR 500 mg 500 mg PO DAILY 09/13/18 (*)] oxyCODONE IR [Oxycodone Ir (*)] 5 mg PO Q6H PRN #20 tab 09/13/18 Medical Decision Making - Data Points Laboratory Results: Laboratory Results 09/12/18 22:20 09/12/18 22:20 Medications Given: Discontinued Medications Aspirin Buffered (Aspirin Ec) 325 mg PO DAILY [facility] Stop: 03/12/19 08:59 Last Admin: 09/13/18 08:42 Dose: 325 mg Clopidogrel Bisulfate (Plavix) 75 mg PO DAILY [facility] Stop: 03/12/19 08:59 Last Admin: 09/13/18 08:42 Dose: 75 mg Enoxaparin Sodium (Lovenox) 40 mg SC DAILY [facility] Stop: 03/12/19 08:59 Last Admin: 09/13/18 07:25 Dose: 40 mg Sodium Chloride (Ns) 1,000 mls @ 0 mls/hr IV EDNOW ONE; Wide Open PRN Reason: Protocol Stop: 09/12/18 22:13 Last Admin: 09/12/18 22:31 Dose: 1,000 mls Sodium Chloride (Ns) 1,000 mls @ 0 mls/hr IV ONCE ONE PRN Reason: Wide Open Stop: 09/12/18 22:25 Last Admin: 09/12/18 22:30 Dose: 1,000 mls Sodium Chloride (Ns) 1,000 mls @ 100 mls/hr IV CONT [facility] Stop: 03/11/19 23:44 Last Admin: 09/13/18 11:50 Dose: 1,000 mls Insulin Glargine (Lantus Syringe) 30 units SC DAILY [facility] Stop: 03/12/19 08:59 Last Admin: 09/13/18 08:28 Dose: 30 units Insulin Glargine (Lantus Syringe) 30 units SC HS [facility] Stop: 03/12/19 00:44 Last Admin: 09/13/18 00:56 Dose: 30 units Insulin Human Lispro (Humalog Lispro) 0 unit SC TIDMEAL [place] PRN Reason: Protocol Stop: 03/12/19 07:59 Last Admin: 09/13/18 13:31 Dose: 2 units Insulin Human Lispro (Humalog Lispro) 5 unit SC ONCE ONE Stop: 09/13/18 13:15 Last Admin: 09/13/18 13:31 Dose: 5 units Metformin HCl (Glucophage Xr) 500 mg PO DAILY [facility] Stop: 03/12/19 08:59 Last Admin: 09/13/18 09:30 Dose: 500 mg Oxycodone HCl (Oxycodone Ir) 2.5 - 5 mg PO Q4HRS PRN PRN Reason: Pain, Severe Able to Take PO Stop: 09/23/18 01:07 Last Admin: 09/13/18 12:39 Dose: 5 mg Point of Care Test Results: Chemistry 09/12/18 22:29 POC Troponin I 0.00 ng/mL ng/mL (0.00-0.08) Departure - Departure Disposition: [facility] Acute Clinical Impression: Dehydration, Orthostatic hypotension Syncope Qualifiers: Syncope type: unspecified Qualified Code(s): R55 - Syncope and collapse Condition: Fair
[2018-09-12 22:35] LABS: PLATELET COUNT 233 10^3/uL (150-400)
[2018-09-12] MEDS ORDERED: ACETAMINOPHEN 325 MG TAB PO PRN (23:34)
[2018-09-12] MEDS ORDERED: ONDANSETRON 4 MG/2 ML VIAL IVP PRN (23:34)
[2018-09-12] MEDS ORDERED: ONDANSETRON DISINTEGRATING 4 MG TAB PO PRN (23:34)
[2018-09-12] MEDS ORDERED: D50W 25 GM/50 ML SYR IVP PRN (23:36)
--- NOTE | 2018-09-13 | PDGENHP ---
History and Physical - Chief Complaint Syncope - History of Present Illness 53 yo M w/ hx of CAD, IDDM, and back pain presents after syncopal event. The patient got up from a seated position, got lightheaded, and had a brief syncopal episode. He did have some mild chest tightness but only as he began to lose consciousness. He continued to feel lightheaded after this so he came to the ED for evaluation. In the ED he was noted to be tachycardic on arrival with positive orthostatic VS. His HR and symptoms improved with 2 L of fluids. He currently denies symptoms. Of note, his blood glucose was >300 on admission labs. He tells me he has been on prednisone for the last week and his blood glucose has been more elevated than usual. He has been constantly thirsty with a feeling of dry mouth. Also, he started taking gabapentin a few weeks ago, which makes him feel quite drowsy. Case discussed with ED physician Dr. Engle; records reviewed and summarized above. History Information - Allergies/Home Medication List Allergies/Adverse Reactions: No Known Allergies Allergy (Verified 09/12/18 22:10) Home Medications: Insulin Aspart [Novolog Flexpen] 15 unit SQ TIDMEAL 07/16/18 [Last Taken 09:00] Insulin Detemir [Levemir Flextouch] 15 unit SQ BID 07/16/18 [Last Taken 09:00] Lisinopril [Zestril 2.5 mg (*)] 2.5 mg PO BID 07/16/18 [Last Taken 07/16/18 09: 00] I have personally reviewed and updated: family history, medical history - Past Medical History coronary artery disease, diabetes type 2 - Surgical History Reports: coronary stent - Family History Positive for: CAD - Social History Smoking Status: Never smoked Review of Systems Review of Systems: ROS: 10pt was reviewed & negative except for what was stated in HPI & below Physical Exam Physical Exam: Temp Pulse Resp BP Pulse Ox 36.4 C 102 H 20 114/78 95 09/12/18 22:07 09/12/18 22:56 09/12/18 22:56 09/12/18 22:56 09/12/18 22:56 Constitutional: no apparent distress, not in pain Eyes: PERRL, EOMI Ears, Nose, Mouth, Throat: moist mucous membranes, no oral mucosal ulcers Cardiovascular: regular rate and rhythym, no murmur, rub, or gallop Respiratory: no respiratory distress, clear to auscultation Gastrointestinal: normoactive bowel sounds, soft, non-tender abdomen Skin: warm, normal color Musculoskeletal: full muscle strength, no muscle tenderness Neurologic: AAOx3, CN II-XII Intact Psychiatric: interacting appropriately, not anxious Lab Data & Imaging Review 09/12/18 22:20 09/12/18 22:20 WBC 12.15 10^3/uL (3.80-9.50) H 09/12/18 22:20 RBC 5.68 10^6/uL (4.40-6.38) 09/12/18 22:20 Hgb 17.1 g/dL (13.7-17.5) 09/12/18 22:20 Hct 48.2 % (40.0-51.0) 09/12/18 22:20 MCV 84.9 fL (81.5-99.8) 09/12/18 22:20 MCH 30.1 pg (27.9-34.1) 09/12/18 22:20 MCHC 35.5 g/dL (32.4-36.7) 09/12/18 22:20 RDW 11.8 % (11.5-15.2) 09/12/18 22:20 Plt Count 233 10^3/uL (150-400) 09/12/18 22:20 MPV 11.8 fL (8.7-11.7) H 09/12/18 22:20 Neut % (Auto) 86.1 % (39.3-74.2) H 09/12/18 22:20 Lymph % (Auto) 7.5 % (15.0-45.0) L 09/12/18 22:20 [place] % (Auto) 5.9 % (4.5-13.0) 09/12/18 22:20 Eos % (Auto) 0.0 % (0.6-7.6) L 09/12/18 22:20 Baso % (Auto) 0.1 % (0.3-1.7) L 09/12/18 22:20 Nucleat RBC Rel Count 0.0 % (0.0-0.2) 09/12/18 22:20 Absolute Neuts (auto) 10.46 10^3/uL (1.70-6.50) H 09/12/18 22:20 Absolute Lymphs (auto) 0.91 10^3/uL (1.00-3.00) L 09/12/18 22:20 Absolute Monos (auto) 0.72 10^3/uL (0.30-0.80) 09/12/18 22:20 Absolute Eos (auto) 0.00 10^3/uL (0.03-0.40) L 09/12/18 22:20 Absolute Basos (auto) 0.01 10^3/uL (0.02-0.10) L 09/12/18 22:20 Absolute Nucleated RBC 0.00 10^3/uL (0-0.01) 09/12/18 22:20 Immature Gran % 0.4 % (0.0-1.1) 09/12/18 22: Immature Gran # 0.05 10^3/uL (0.00-0.10) 09/12/18 22:20 D-Dimer 0.30 ug/mLFEU (0.00-0.50) 09/12/18 22:20 Sodium 137 mEq/L (135-145) 09/12/18 22:20 Potassium 4.8 mEq/L (3.3-5.0) 09/12/18 22:20 Chloride 100 mEq/L (97-110) 09/12/18 22:20 Carbon Dioxide 23 mEq/l (22-31) 09/12/18 22:20 Anion Gap 14 mEq/L (6-14) 09/12/18 22:20 BUN 27 mg/dL (7-23) H 09/12/18 22:20 Creatinine 0.8 mg/dL (0.7-1.3) 09/12/18 22:20 Estimated GFR > 60 09/12/18 22:20 Glucose 304 mg/dL (70-100) H 09/12/18 22:20 Calcium 10.0 mg/dL (8.5-10.4) 09/12/18 22:20 Magnesium 2.1 mg/dL (1.6-2.3) 09/12/18 22:20 Total Bilirubin 1.0 mg/dL (0.1-1.4) 09/12/18 22:20 Conjugated Bilirubin 0.2 mg/dL (0.0-0.5) 09/12/18 22:20 Unconjugated Bilirubin 0.8 mg/dL (0.0-1.1) 09/12/18 22:20 AST 18 IU/L (17-59) 09/12/18 22:20 ALT 21 IU/L (21-72) 09/12/18 22:20 Alkaline Phosphatase 58 IU/L (38-126) 09/12/18 22:20 POC Troponin I 0.00 ng/mL (0.00-0.08) 09/12/18 22:29 Total Protein 7.8 g/dL (6.3-8.2) 09/12/18 22:20 Albumin 4.6 g/dL (3.5-5.0) 09/12/18 22:20 Visualized and Interpreted EKG results: Yes EKG Interpretation: Positive for: normal sinsus rhythm Assessment & Plan Assessment: 53 yo M w/ hx of CAD and IDDM presents after syncopal event most likely caused by dehydration. Plan: 1. Syncope - Most likely caused by orthostatic hypotension from dehydration; orthostatic VS positive in the ED. Tachycardia and symptoms have resolved with 2 L of IVF. I suspect his dehydration was caused by poorly controlled blood sugar related to prednisone therapy for the last week. His blood glucose was > 300 on admission. It is also possible gabapentin therapy contributed. ECG ( personally reviewed/interpreted) did not reveal signs of ischemia and troponin as well as D-dimer were negative. - Observe in PCU - Monitor on telemetry, trend cardiac enzymes - Continue mIVF overnight - I do not believe he needs additional cardiac work-up unless telemetry or troponin are concerning 2. IDDM - BG>300 on admission in the setting of prednisone therapy, which he has now finished. He takes insulin detemir 30 u BID + aspart SSI as outpatient. - Insulin glargine 30 u BID + lispro SSI ordered - Monitor BG ACHS; D50 IV PRN for hypoglycemia 3. CAD - S/p SANDI in June of this year; he has been compliant with DAPT. - Continue home medications pending reconciliation - Acute management as above 4. Back pain - Currently on gabapentin and finished prednisone taper today. He has been told he might need surgery but this has been delayed by need for DAPT. Diet - Regular Code - Full Ppx - LMWH Dispo - Admit under observation status
[2018-09-13] MEDS ORDERED: INSULIN GLARGINE 100 UNITS/ML UNIT SC SCH ×3 (00:45→21:00)
[2018-09-13] MEDS: NS 1,000 ML IV SCH ×2 (00:54→11:50)
[2018-09-13] MEDS: oxyCODONE IR 5 MG TAB PO PRN ×3 (01:19→12:39)
[2018-09-13 04:42] LABS: PLATELET COUNT 171 10^3/uL (150-400)
[2018-09-13] MEDS: INSULIN LISPRO 100 UNIT/ML SC SCH ×2 (08:28→13:31)
[2018-09-13] MEDS ORDERED: GABAPENTIN 100 MG CAP PO PRN (08:34)
[2018-09-13] MEDS ORDERED: CARBOXYMETHYLCELLULOSE 1% 0.4 ML DROPERETTE EACHEYE PRN (08:34)
[2018-09-13] MEDS ORDERED: NITROGLYCERIN 0.4 MG BTL SL PRN (08:34)
[2018-09-13] MEDS ORDERED: ENOXAPARIN 40 MG/0.4 ML SYR SC SCH (09:00)
[2018-09-13] MEDS ORDERED: CLOPIDOGREL BISULFATE 75 MG TAB PO SCH (09:00)
[2018-09-13] MEDS ORDERED: ASPIRIN EC 325 MG TAB PO SCH (09:00)
[2018-09-13] MEDS ORDERED: metFORMIN SR 500 MG TAB PO SCH (09:00)
[2018-09-13 11:22] VITALS: BP 136/78
[2018-09-13] MEDS ORDERED: INSULIN LISPRO 100 UNIT/ML SC ONE (13:14)
--- NOTE | 2018-09-13 13:44 | ASMTLACE ---
LACE Length of stay for Answers: Less than 1 day current admission Acuity / Level of Answers: No Care: Did the patient have an inpatient admission? Comorbidities - select Answers: Coronary Artery Disease all that apply Diabetes (uncontrolled or controlled) Opioid dependence / Chronic pain Previous myocardial infarction # of Emergency department Answers: 3-4 visits in the last 6 months Score: 11 Date Signed: 09/13/2018 01:44 PM Electronically Signed By:Shell Ortiz RN
--- NOTE | 2018-09-13 13:45 | ASMTCMCOM ---
CM Note CM Note Notes: Discussed this case in morning rounds - no d/c concerns at this time. Patient will d/c home today independently. CM available for changes/needs. Date Signed: 09/13/2018 01:45 PM Electronically Signed By:Shell Ortiz RN
--- NOTE | 2018-09-13 18:13 | PDDCSUM ---
Discharge Summary Discharge Summary: Date of Admission: 09/12/2018 Date of Discharge: 09/13/2018 Studies: none Discharge Diagnoses: 1. Syncope due to orthostasis 2. Dehydration with sinus tachycardia 3. Hyperglycemia with IDDM 4. Acute on chronic back pain 5. Intolerance of gabapentin 6. CAD s/p SANDI 06/2018 Brief Hospital Course: 53 yo M w/ hx of CAD and IDDM presented after passing out when going from a seated to standing position. He was recently started on prednisone burst for back pain. His blood glucose has been uncontrolled (BG>300 on admit without acidemia or anion gap) leading to significant polyuria and dehydration. He had + orthostatics in the ED. He was fluid resuscitated. He was ambulating without presyncopal symptoms prior to discharge. I have discontinued his lisinopril. I did not feel that his syncope was cardiac in origin and telemetry remained quiet. He is titrating his insulin. He has continued to have rather severe back pain (this is chronic and not related to fall/syncope). He is not tolerating gabapentin as this has been causing significant lethargy and confusion. He has agreed to taper off this. I have written for oxycodone as this has helped in the past. He is reportedly planning on getting a spinal fusion but is unable to get this until he is safely able to discontinue DAPT (had coronary stent placed 06/2018). Medications: Please refer to EMR for complete list. Changes this admission include: 1. Oxycodone 5mg q6h PRN, #20, 0 refills 2. Discontinue lisinopril 2.5mg BID 3. Taper gabapentin - take 100mg qhs for 5 days then discontinue Follow Up Plan: 1. PCP for ongoing management of back pain 2. Monitor BP, consider restarting lisinopril Physical Exam: Vitals reviewed, initially tachycardic that has improved. Alert and oriented, no focal neuro deficits. RRR without m/r/g, lungs clear, abdomen soft, no rashes or edema.
--- NOTE | 2018-09-15 07:06 | CPEKG ---
Test Reason : OPEN Blood Pressure : / mmHG Vent. Rate : 103 BPM Atrial Rate : 103 BPM P-R Int : 121 ms QRS Dur : 084 ms QT Int : 374 ms P-R-T Axes : 035 -07 042 degrees QTc Int : 490 ms Sinus tachycardia Borderline prolonged QT interval Confirmed by Cruz Tuttle ([id number]) on 09/15/2018 7:05:15 AM Referred By: Confirmed By:Cruz Tuttle
--- NOTE | 2018-09-15 07:06 | CPEKG ---
Test Reason : OPEN Blood Pressure : / mmHG Vent. Rate : 115 BPM Atrial Rate : 119 BPM P-R Int : 113 ms QRS Dur : 083 ms QT Int : 327 ms P-R-T Axes : 044 004 071 degrees QTc Int : 453 ms Sinus tachycardia Confirmed by Cruz Tuttle ([id number]) on 09/15/2018 7:05:15 AM Referred By: Confirmed By:Cruz Tuttle
== END 2018-09-13 15:33 | disposition home or self-care (01) ==
LOC: F2W 09-13 00:31
PROVIDERS: ADMIT Student in an Organized Health Care Education/Training Program; ATTEND Student in an Organized Health Care Education/Training Program
DX: I95.1 Orthostatic hypotension (principal); E86.0 Dehydration; R00.0 Tachycardia, unspecified; E11.65 Type 2 diabetes mellitus with hyperglycemia; M54.9 Dorsalgia, unspecified; G89.29 Other chronic pain; I25.10 Atherosclerotic heart disease of native coronary artery without angina pectoris; Z95.5 Presence of coronary angioplasty implant and graft
CPT/HCPCS: 71045; 93005; 96360; 96372; 99285; G0378; 84484-PO; J1650; J1815